=== PATIENT | male | born 1960 | race Caucasian/White ===

== ENCOUNTER 2020-11-18 13:24 | Observation (INO) | payer OTHER ==
[~2020-11-18] VITALS: Ht 177.8 cm; Wt 111.1 kg
[2020-11-18 14:09] LABS: BASOPHILS ABSOLUTE AUTO 0.02 K/mm3 (0.00-0.23); BASOPHILS PERCENT AUTO 0 % (0-2); EOSINOPHILS ABSOLUTE AUTO 0.01 K/mm3 (0.00-0.68); EOSINOPHILS PERCENT AUTO 0 % (0-6); Hematocrit 42.6 % (37.0-53.0); Hemoglobin 14.2 g/dL (13.5-17.5); IMMATURE GRAN ABSOLUTE AUTO 0.05 K/mm3 (0.00-0.10); IMMATURE GRAN PERCENT AUTO 0 % (0-1); LYMPHOCYTES ABSOLUTE AUTO 1.11 K/mm3 (0.84-5.20); LYMPHOCYTES PERCENT AUTO 9 % (21-46); MONOCYTES ABSOLUTE AUTO 0.77 K/mm3 (0.16-1.47); MONOCYTES PERCENT AUTO 6 % (4-13); Mean Corpuscular HGB 28.3 pg (26.0-34.0); Mean Corpuscular HGB Conc 33.3 g/dL (31.5-36.5); Mean Corpuscular Volume 85 fL (80-100); Mean Platelet Volume 10.4 fL (9.1-12.4); NEUTROPHILS ABSOLUTE AUTO 10.73 K/mm3 (1.96-9.15); NEUTROPHILS PERCENT AUTO 85 % (41-73); Platelet Count 164 K/mm3 (150-400); RDW Coefficient Variation 13.6 % (11.7-14.2); RDW Standard Deviation 41.9 fL (35.1-46.3); Red Blood Cell Count 5.02 M/mm3 (4.30-5.90); White Blood Cell Count 12.69 K/mm3 (4.00-11.30)
[2020-11-18 14:27] LABS: Alanine Aminotransfer (ALT/SGP 66 U/L (12-78); Albumin, Blood 3.8 g/dL (3.4-5.0); Albumin/Globulin Ratio 0.9 (0.8-1.8); Alk Phos 69 U/L (50-136); Anion Gap 6 mmol/L (6-16); Aspartate Aminotrans (AST/SGOT 52 U/L (12-37); Bilirubin, Total 1.4 mg/dL (0.1-1.0); Blood Urea Nitrogen 18 mg/dL (8-24); CO2, Blood 23 mmol/L (21-32); Calcium, Blood 9.5 mg/dL (8.5-10.1); Chloride, Blood 106 mmol/L (98-108); Creatinine, Blood 0.95 mg/dL (0.60-1.20); Globulin, Blood 4.3 g/dL (2.2-4.0); Glomerular Filtration Rate >60 (60-); Glucose, Blood 115 mg/dL (70-99); Potassium, Blood 5.5 mmol/L (3.5-5.5); Sodium, Blood 135 mmol/L (136-145); Total Protein, Blood 8.1 g/dL (6.4-8.2)
[2020-11-18 15:26] LABS: Source, Urine Voided
[2020-11-18 15:40] LABS: Appearance, Urine Clear (Clear); Bilirubin, Urine Neg (Neg); Blood, Urine Neg (Neg); Color, Urine Yellow (P-Yellow); Glucose Qualitative, Urine Neg (Neg); Ketones, Urine Neg (Neg); Leukocyte Esterase, Urine Neg (Neg); Nitrite, Urine Neg (Neg); Protein, Urine 1+ (Neg); Urobilinogen, Urine 1+ (Normal)
[2020-11-18] MEDS ORDERED: ATOR20 PO (17:18)
[2020-11-18] MEDS ORDERED: LOSA50 PO (17:18)
[2020-11-18] MEDS ORDERED: PRAZ1 PO (17:19)
[2020-11-18] MEDS ORDERED: SERT50 PO (21:20)
[2020-11-18 22:22] LABS: SARS-Cov-2 (COVID-19) PCR, MMC NEGATIVE (NEGATIVE)
--- NOTE | 2020-11-19 01:08 | NUR ---
PT ARRIVED IN THE SURGICAL UNIT AT 2114 VIA STRETCHER. PT AOX4. TRANSFERED INDEPENDENTLY IN BED. WAS AT BEDSIDE. VSS. PT REPORTS RUQ PAIN LEVEL AT 2/10. PT LAYS COMFORTABLE IN BED. TOLERATING PO INTAKE, DENIES NAUSEA AND VOMITING. NPO AFTER MIDNIGHT. PT STARTS C/O OF HEADACHE WHICH HE RARELY GETS, TYLENOL WAS GIVEN VIA PO. LR INFUSING AND ADMINSTERED ABX AT MIDNIGHT. VOIDING WELL WITHOUT ANY ISSUES. REORIENT IN ROOM. CALL LIGHT WITHIN REACH. BED IN LOW POSITION. WILL CONTINUE TO MONITOR PT.
--- NOTE | 2020-11-19 07:38 | NUR ---
SHIFT SUMMARY NO ACUTE CHANGES OVERNIGHT. PT CAME TO THE UNIT WITH MINIMAL ABD PAIN, 2/10, BUT STARTED TO C/O HEADACHE. H/A MANAGED WITH TYLENOL. PT STS IT DID HELPED WITH THE PAIN. LR IS INFUSING ON R HAND AND ABX WAS ADMINISTERED. NPO AFTER MIDNIGHT. INDEPENDENT IN ROOM. PT REPORTS NO PAIN THIS MORNING. HE IS ALERT AND ORIENTED X4. USE CALL LIGHT APPROPRIATELY. VSS. BED IN LOW POSITION. CALL LIGHT WITHIN REACH. PROVIDE REPORT TO ALFREDO MONCADA. PLAN: SURGICAL PROCEDURE TODAY
--- NOTE | 2020-11-19 07:55 | NUR ---
A&OX4, RATES PAIN AT 2/10, DENIES ANY NAUSEA, AMBULATING TO THE BATHROOM WITHOUT DIFFICULTY, NPO FOR OR TODAY.
--- NOTE | 2020-11-19 13:42 | NUR ---
PT UPDATED ON POSSIBLE SURGERY TIME, CURRENTLY RESTING IN BED, DENIES ANY NEED FOR PAIN MEDS AT THIS TIME.
--- NOTE | 2020-11-19 15:40 | NUR ---
11/19/20 1540 CHANDLERKIMBERLY PT RECEIVED SCHEDULED DOSE OF ANTIBIOTICS PRIOR TO PROCEDURE PER DR ORDERS.
--- NOTE | 2020-11-19 18:20 | NUR ---
ARRIVED FROM PACU VIA GURNEY, PT TRANSFERRED SELF TO BED, AWAKE, A&O X4, DENIES ANY PAIN OR NAUSEA, ABD W/ 4 LAP INCISIONS W/ SCANT SS DRAINAGE, ABD MILDLY DISTENDED, CLEAR LIQUIDS OFFERED, VSS, TOLERATED CL WELL, PT EATING REGULAR DINNER, NO ACUTE CHANGES THIS SHIFT.
--- NOTE | 2020-11-20 06:43 | NUR ---
SUMMARY PT OFF O2.TOLERATING PO FLUIDS.PO PAIN MEDS EFFECTIVE.VOIDING CONCENTRATED URINE.
[2020-11-20] MEDS ORDERED: Acetaminophen650 M1 PO (10:46)
[2020-11-20] MEDS ORDERED: DOCU100 PO (10:47)
[2020-11-20] MEDS ORDERED: Norco 5-325 Ta1 EACH PO (10:48)
--- NOTE | 2020-11-20 15:41 | NUR ---
PT DC'D HOME, DR. SOLIS SAW PT BEFORE DC, DC INSTRUCTIONS GIVEN, VERBALIZED UNDERSTANDING, IV DC'D, CATH INTACT.
== END 2020-11-20 15:20 | disposition home or self-care (01) ==
LOC: ER 13:24 → SURS 13:25 → ER 19:58 → SURS 19:58
PROVIDERS: Physician Assistant; Surgery; ADMIT Surgery
PROC: 0FT44ZZ Resection of Gallbladder, Percutaneous Endoscopic Approach (ICD-10-PCS; principal; 2020-11-19 15:00)
DX: K80.00 Calculus of gallbladder with acute cholecystitis without obstruction (principal); K82.1 Hydrops of gallbladder; R16.2 Hepatomegaly with splenomegaly, not elsewhere classified; K57.30 Diverticulosis of large intestine without perforation or abscess without bleeding; K40.90 Unilateral inguinal hernia, without obstruction or gangrene, not specified as recurrent; N40.0 Benign prostatic hyperplasia without lower urinary tract symptoms; N20.0 Calculus of kidney; N28.1 Cyst of kidney, acquired; I10 Essential (primary) hypertension; I70.0 Atherosclerosis of aorta; Z20.822 Contact with and (suspected) exposure to COVID-19; Z88.8 Allergy status to other drugs, medicaments and biological substances
CPT/HCPCS: 36415; 74177; 76705; 80053; 83690; 84484; 85025; 93005; 93010; 94760; A9270; J1100; J1170; J1885; J2250; J2405; J2543; J2704; J3010; J7030; J7120; Q9967; U0004